=== PATIENT | female | born 2000 | race Two or more races ===

== ENCOUNTER 2025-01-03 18:17 | Observation (INO) | payer MEDICAID, SELFPAY ==
[2025-01-03] VITALS (34 sets, daily range): BP systolic 108–119; BP diastolic 59–64; PULSE 69–98; RESP 19–97; TEMP 37.3; O2SAT 91–100; BMI 31.3
--- NOTE | 2025-01-03 19:10 | XR_ITS ---
EXAMINATION: Transvaginal pelvic sonography TECHNIQUE: Limited transvaginal sonographic images pelvis Date and time: January 03, 2025, 1731 hours INDICATIONS: Decreased movement and lower abdominal pelvic pain onset today FINDINGS: Cervix 5.2 cm closed IMPRESSION: Cervix 5.2 cm closed
--- NOTE | 2025-01-03 19:15 | XR_ITS ---
EXAMINATION: Biophysical Date and time: January 03, 2025, 1924 hours INDICATIONS: Decreased movement lower abdominal and pelvic pain today Technique and findings: Attention sonographically directed to movement, breathing motion, tone, qualitative DORIAN Body movement: 2 Breathing motion: 2 tone: 2 Qualitative DORIAN: 2 IMPRESSION: Biophysical profile 8 of 8 Amniotic fluid index 8.9 cm
== END 2025-01-03 21:29 | disposition home or self-care (01) ==
PROVIDERS: Admitting Provider Obstetrics & Gynecology; Visit Provider Obstetrics & Gynecology
DX: O36.8130 Decreased fetal movements, third trimester, not applicable or unspecified (principal); O26.893 Other specified pregnancy related conditions, third trimester; M54.9 Dorsalgia, unspecified; Z3A.32 32 weeks gestation of pregnancy
CPT/HCPCS: 59025; 59899; 76819; 76830

== ENCOUNTER 2025-02-17 08:31 | Observation (INO) | payer MEDICAID, SELFPAY ==
[2025-02-17] VITALS (12 sets, daily range): BP systolic 120; BP diastolic 73; PULSE 70–95; RESP 18–98; TEMP 36.8; O2SAT 98–100; BMI 32.5
== END 2025-02-17 09:40 | disposition home or self-care (01) ==
PROVIDERS: Admitting Provider Obstetrics & Gynecology; Visit Provider Obstetrics & Gynecology
DX: O47.9 False labor, unspecified (principal); O46.90 Antepartum hemorrhage, unspecified, unspecified trimester; Z3A.00 Weeks of gestation of pregnancy not specified
CPT/HCPCS: 59025; 59899